=== PATIENT | male | born 1930 | race Caucasian/White ===

== ENCOUNTER 2017-04-30 10:01 | Inpatient (IN) | payer MEDICARE ==
[~2017-04-30] VITALS: Ht 162.6 cm; Wt 77.1 kg
--- NOTE | ~2017-04-30 | EC ---
PATIENT:NURIA REYNOSO DATE OF SERVICE: 04/30/17 SEX: M MEDICAL RECORD: [id number] DATE OF : [birth year] LOCATION:[facility] AGE OF PATIENT: 86 ADMISSION DATE: 04/30/17 REFERRING PHYSICIAN: INTERPRETING PHYSICIAN: JEANNETTE HURTADO MD ECHOCARDIOGRAM REPORT ECHO CHARGES 4 ECHO COMPLETE CLINICAL DIAGNOSIS: SOB/EDEMA ECHOCARDIOGRAPHIC MEASUREMENTS (adult normal given) AC root (d.<3.7cm) 3.3 cm LV Septum d (<1.2 cm> 0.0 cm Valve Excursion 0.9 cm LV Septum (systole) 1.0 cm Left Atria (s.<4.0cm> 4.7 cm LVPW d(<1.2cm) 1.0 cm RV (d.<2.3cm) 4.5 cm LVPW (sytole) 1.5 cm LV diastole(<5.6CM) 6.0 cm MV E-F(>70mm/sec) cm LV systole 4.7 cm LVOT Diameter 1.0 cm MV exc.(>10mm) 1.5 cm Est.ejection fraction (50-75%) % Pericardial Effusion N DOPPLER: LVIT cm/sec A cm/sec E cm/sec LA cm/sec RVSP 48 mmHg LVOT 73 cm/sec AOP1/2T m/s Asc. 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 Hurtado TAPE# PACS DATE OF SERVICE: 05/05/2017 PROCEDURE: Transthoracic echocardiogram. FINDINGS: 1. Left ventricle has mild dilatation. The left ventricle has normal size. Otherwise, the overall function of the heart is mildly depressed at 40% to 45% with no obvious regional wall motion abnormalities. 2. The mitral valve annulus is calcified. There is thickening of the mitral valve itself. There is severe mitral regurgitation. ECHOCARDIOGRAM REPORT [id number] NURIA REYNOSO 3. The left atrium is severely dilated. 4. Aortic valve is not well visualized. There appears to be trileaflet, degenerative valve structure. The overall peak velocity of the aortic valve 2-2.5. There appears to be moderate aortic stenosis, calculated valve area may be underestimated. Telemetry is between 0.8-1.0 cm-squared. 5. There is severe tricuspid regurgitation, RVSP of 45 to 50 mmHg. The patient is in atrial fibrillation. 6. The right atrium, the right ventricle, both moderate to severely dilated. CONCLUSION: The patient has multivalvular heart disease including at least moderate, maybe moderately to severe aortic stenosis, severe mitral regurgitation, severe tricuspid regurgitation, and evidence of pulmonary hypertension. Overall function of the heart is mildly depressed with an ejection fraction of 45% to 50%. TRANSINT:[id number] Voice Confirmation ID: [id number] DOCUMENT ID: [id number] 05/11/2017 Edited to correct date of service, dmm. JEANNETTE HURTADO MD at 1252 CC: [id number] DICTATION DATE: 05/07/17 1158 [place]: 05/07/17 1517 DIS IN 05/09/17 [id number] [place] [address]
[~2017-04-30 10:01] MED LIST: CALCIUM 500 + D1 TAB PO; CHOLESTYRAMIN4 G/PK1 PO; COUMADIN2.5 MG PO; DETROL LA4 MG PO; HYTRIN1 MG PO; ZANTAC150 MG PO
[2017-04-30 10:38] LABS: BASOPHILS 0.3 % (0-2); EOSINOPHILS 0.7 % (0-7); HEMATOCRIT 29.4 % (42.0-54.0); HEMOGLOBIN 9.6 g/dL (13.5-17.5); IMMATURE GRANULOCYTES 0.3 % (0-5); LYMPHOCYTES 21.1 % (15-50); MCH 31.6 pg (26.0-34.0); MCHC 32.7 g/dL (31.0-37.0); MCV 96.7 fL (80.0-100.0); MEAN PLATELET VOLUME 10.4 fL (7.4-10.4); MONOCYTES 6.6 % (2-11); RBC 3.04 10x6/uL (4.20-6.10); RDW 15.1 % (11.5-14.5)
[2017-04-30 10:39] LABS: PLATELET COUNT 62 10x3/uL (130-400)
[2017-04-30 10:57] LABS: ALBUMIN 2.9 g/dL (3.4-5.0); ANION GAP 15.9 mmol/L (8-16); BILIRUBIN - TOTAL 1.3 mg/dL (0.2-1.3); CALCIUM 8.7 mg/dL (8.5-10.1); CARBON DIOXIDE 21.6 mmol/L (21.0-32.0); CREATININE - SERUM 1.3 mg/dL (0.6-1.3); POTASSIUM - SERUM 3.5 mmol/L (3.5-5.1); PROTEIN - SERUM 7.1 g/dL (6.4-8.2)
[2017-04-30 10:59] LABS: PLATELET ESTIMATE DECREASED
[2017-04-30 11:01] LABS: TROPONIN-I 0.053 ng/mL (0.000-0.060)
[2017-04-30 11:40] LABS: APPEARANCE CLEAR (CLEAR); BILIRUBIN NEGATIVE (NEGATIVE); COLOR YELLOW (YELLOW); GLUCOSE NEGATIVE (NEGATIVE); KETONE NEGATIVE (NEGATIVE); NITRITE NEGATIVE (NEGATIVE); PROTEIN NEGATIVE (NEGATIVE); UROBILINOGEN NORMAL (NORMAL)
[2017-04-30 11:56] LABS: BACTERIA FEW /hpf (NONE SEEN); EPITHELIAL CELLS RARE /hpf (0-5); HYALINE CAST OCC /lpf (NONE SEEN); RED CELLS - URINE OCC /hpf (0-5); WHITE CELLS - URINE NSEEN /hpf (0-5)
[2017-04-30] MEDS ORDERED: LASIX40 MG PO (17:39)
[2017-04-30] MEDS ORDERED: ZYLOPRIM100 MG PO (17:39)
[2017-04-30] MEDS ORDERED: PROSCAR5 MG PO (17:40)
[2017-04-30 17:41] VITALS: BMI 29.2
[2017-04-30 20:00] VITALS: BP 115/63
[2017-04-30 23:53] VITALS: BP 95/48
[2017-05-01 04:45] LABS: BASOPHILS 1.1 % (0-2); EOSINOPHILS 1.5 % (0-7); HEMATOCRIT 26.3 % (42.0-54.0); HEMOGLOBIN 8.5 g/dL (13.5-17.5); LYMPHOCYTES 24.3 % (15-50); MCHC 32.3 g/dL (31.0-37.0); MEAN PLATELET VOLUME 11.8 fL (7.4-10.4); MONOCYTES 6.8 % (2-11); NEUTROPHILS 66.3 % (40-80); RBC 2.74 10x6/uL (4.20-6.10); RDW 15.2 % (11.5-14.5); WBC 2.6 10x3/uL (4.8-10.8)
[2017-05-01 04:50] LABS: PLATELET COUNT 63 10x3/uL (130-400)
[2017-05-01 05:10] LABS: ALBUMIN 2.7 g/dL (3.4-5.0); ANION GAP 12.7 mmol/L (8-16); BILIRUBIN - TOTAL 1.3 mg/dL (0.2-1.3); CALCIUM 8.3 mg/dL (8.5-10.1); CARBON DIOXIDE 22.9 mmol/L (21.0-32.0); CREATININE - SERUM 1.2 mg/dL (0.6-1.3); POTASSIUM - SERUM 3.6 mmol/L (3.5-5.1); PROTEIN - SERUM 6.4 g/dL (6.4-8.2)
[2017-05-01 08:42] VITALS: BP 99/60
[2017-05-01 11:51] VITALS: BP 122/62
[2017-05-01 14:12] LABS: % SATURATION 16 % (15-55); IRON 48 ug/dl (35-150); TOTAL IRON BIND CAPACITY 287 ug/dl (260-445); UNSAT IRON BIND CAPACITY 239 ug/dl (150-375)
[2017-05-01 14:19] LABS: PROTIME 33.7 SECONDS (11.6-15.0)
[2017-05-01 14:20] LABS: APTT 44.7 SECONDS (22.8-39.4); INR 3.49 (0.85-1.17)
[2017-05-01 15:39] VITALS: BP 111/48
[2017-05-02 01:38] VITALS: BP 114/57
[2017-05-02 04:48] LABS: BASOPHILS 0 % (0-2); EOSINOPHILS 0 % (0-7); LYMPHOCYTES 11.4 % (15-50); MCH 30.8 pg (26.0-34.0); MCHC 33.1 g/dL (31.0-37.0); NEUTROPHILS 87.6 % (40-80); PLATELET COUNT 63 10x3/uL (130-400); RDW 16.2 % (11.5-14.5)
[2017-05-02 05:05] LABS: ALBUMIN 2.7 g/dL (3.4-5.0); ANION GAP 16.8 mmol/L (8-16); BILIRUBIN - TOTAL 1.9 mg/dL (0.2-1.3); CALCIUM 8.2 mg/dL (8.5-10.1); CARBON DIOXIDE 22.5 mmol/L (21.0-32.0); CREATININE - SERUM 1.1 mg/dL (0.6-1.3); MAGNESIUM - SERUM 1.8 mg/dL (1.8-2.4); PHOSPHOROUS 3.7 mg/dL (2.5-4.9); POTASSIUM - SERUM 3.3 mmol/L (3.5-5.1); PROTEIN - SERUM 6.7 g/dL (6.4-8.2)
[2017-05-02 05:15] LABS: HEMATOCRIT 32.3 % (42.0-54.0); HEMOGLOBIN 10.7 g/dL (13.5-17.5); MCV 93.1 fL (80.0-100.0); RBC 3.47 10x6/uL (4.20-6.10)
[2017-05-02 07:46] VITALS: BP 112/60
[2017-05-02 08:45] VITALS: BP 93/53
[2017-05-02 12:37] VITALS: BP 100/54
[2017-05-02 15:26] VITALS: BMI 29.2
[2017-05-02 17:51] VITALS: BP 109/55
[2017-05-02 20:00] VITALS: BP 105/54
[2017-05-03 04:00] VITALS: BP 111/64
[2017-05-03 04:21] LABS: BASOPHILS 0 % (0-2); EOSINOPHILS 0 % (0-7); HEMATOCRIT 31.3 % (42.0-54.0); HEMOGLOBIN 10.3 g/dL (13.5-17.5); LYMPHOCYTES 8.3 % (15-50); MCH 30.7 pg (26.0-34.0); MCHC 32.9 g/dL (31.0-37.0); MCV 93.4 fL (80.0-100.0); MEAN PLATELET VOLUME 10.9 fL (7.4-10.4); MONOCYTES 2.2 % (2-11); NEUTROPHILS 89.5 % (40-80); PLATELET COUNT 67 10x3/uL (130-400); RBC 3.35 10x6/uL (4.20-6.10)
[2017-05-03 04:25] LABS: WBC 2.8 10x3/uL (4.8-10.8)
[2017-05-03 04:54] LABS: ALBUMIN 2.7 g/dL (3.4-5.0); BILIRUBIN - TOTAL 1.37 mg/dL (0.2-1.3); CALCIUM 8.5 mg/dL (8.5-10.1); CARBON DIOXIDE 22.4 mmol/L (21.0-32.0); POTASSIUM - SERUM 3.4 mmol/L (3.5-5.1); PROTEIN - SERUM 6.7 g/dL (6.4-8.2)
[2017-05-03 05:01] LABS: CREATININE - SERUM 1.4 mg/dL (0.6-1.3)
[2017-05-03 08:25] LABS: FOLATE (FOLIC ACID) - SERUM >20.0 ng/mL (>3.0)
[2017-05-03 09:29] VITALS: BP 101/56
[2017-05-03 10:19] LABS: HAPTOGLOBIN 128 mg/dL (34-200)
[2017-05-03 11:19] LABS: CEA 4.1 ng/mL (0.0-4.7)
[2017-05-03 14:18] VITALS: BP 122/69
[2017-05-03 21:30] VITALS: BP 103/73
[2017-05-04 04:00] VITALS: BP 105/67
[2017-05-04 04:35] LABS: BASOPHILS 0 % (0-2); EOSINOPHILS 0 % (0-7); HEMATOCRIT 32.7 % (42.0-54.0); HEMOGLOBIN 10.6 g/dL (13.5-17.5); LYMPHOCYTES 14.3 % (15-50); MCH 30.5 pg (26.0-34.0); MCHC 32.4 g/dL (31.0-37.0); MEAN PLATELET VOLUME 10.6 fL (7.4-10.4); MONOCYTES 9.6 % (2-11); NEUTROPHILS 76.1 % (40-80); PLATELET COUNT 67 10x3/uL (130-400); RBC 3.48 10x6/uL (4.20-6.10); RDW 15.9 % (11.5-14.5); WBC 3.2 10x3/uL (4.8-10.8)
[2017-05-04 04:53] LABS: ALBUMIN 2.7 g/dL (3.4-5.0); ANION GAP 12.7 mmol/L (8-16); BILIRUBIN - TOTAL 1.23 mg/dL (0.2-1.3); CALCIUM 8.6 mg/dL (8.5-10.1); CARBON DIOXIDE 24.8 mmol/L (21.0-32.0); CREATININE - SERUM 1.4 mg/dL (0.6-1.3); MAGNESIUM - SERUM 2.2 mg/dL (1.8-2.4); PHOSPHOROUS 2.8 mg/dL (2.5-4.9); POTASSIUM - SERUM 3.5 mmol/L (3.5-5.1); PROTEIN - SERUM 6.5 g/dL (6.4-8.2)
[2017-05-04 04:56] LABS: INR 4.55 (0.85-1.17); PROTIME 42.2 SECONDS (11.6-15.0)
[2017-05-04 06:17] LABS: BETA-2 MICROGLOBULIN 2.6 mg/L (0.6-2.4)
[2017-05-04 07:12] LABS: IMMUNOFIXATION Note: (()); IMMUNOGLOBULIN A 376 mg/dL (61-437); IMMUNOGLOBULIN G 1636 mg/dL (700-1600); IMMUNOGLOBULIN M 51 mg/dL (15-143); SPE - A/G RATIO 0.9 (0.7-1.7); SPE - ALPHA-1 GLOBULIN 0.2 g/dL (0.0-0.4); SPE - ALPHA-2 GLOBULIN 0.7 g/dL (0.4-1.0); SPE - BETA GLOBULIN 0.9 g/dL (0.7-1.3); SPE - GAMMA GLOBULIN 1.6 g/dL (0.4-1.8); SPE - M-SPIKE Not Observed g/dL (Not Observed); SPE - TOTAL PROTEIN 6.4 g/dL (6.0-8.5)
[2017-05-04 08:09] VITALS: BP 115/66
[2017-05-04 16:28] VITALS: BP 128/64
[2017-05-04 18:36] VITALS: Ht 162.6 cm; Wt 77.1 kg
[2017-05-04 22:57] VITALS: BP 102/65
[2017-05-05] VITALS (7 sets, daily range): BP systolic 87–121; BP diastolic 41–69
[2017-05-05 04:23] LABS: BASOPHILS 0 % (0-2); EOSINOPHILS 0 % (0-7); HEMATOCRIT 33.5 % (42.0-54.0); HEMOGLOBIN 10.8 g/dL (13.5-17.5); IMMATURE GRANULOCYTES 0.4 % (0-5); LYMPHOCYTES 12.2 % (15-50); MCH 30.7 pg (26.0-34.0); MCHC 32.2 g/dL (31.0-37.0); MCV 95.2 fL (80.0-100.0); MEAN PLATELET VOLUME 11.4 fL (7.4-10.4); MONOCYTES 3.1 % (2-11); NEUTROPHILS 84.3 % (40-80); PLATELET COUNT 78 10x3/uL (130-400); RBC 3.52 10x6/uL (4.20-6.10); RDW 16.2 % (11.5-14.5); WBC 2.6 10x3/uL (4.8-10.8)
[2017-05-05 04:52] LABS: ALBUMIN 2.9 g/dL (3.4-5.0); BILIRUBIN - TOTAL 1.4 mg/dL (0.2-1.3); CALCIUM 8.5 mg/dL (8.5-10.1); CARBON DIOXIDE 25.3 mmol/L (21.0-32.0); CREATININE - SERUM 1.2 mg/dL (0.6-1.3)
[2017-05-05 04:54] LABS: POTASSIUM - SERUM 4.3 mmol/L (3.5-5.1)
[2017-05-06 04:00] VITALS: BP 108/62
[2017-05-06 05:55] LABS: BASOPHILS 0 % (0-2); EOSINOPHILS 0.7 % (0-7); HEMATOCRIT 32.9 % (42.0-54.0); HEMOGLOBIN 10.4 g/dL (13.5-17.5); IMMATURE GRANULOCYTES 0.5 % (0-5); LYMPHOCYTES 11.5 % (15-50); MCH 30.1 pg (26.0-34.0); MCHC 31.6 g/dL (31.0-37.0); MCV 95.4 fL (80.0-100.0); MEAN PLATELET VOLUME 11.9 fL (7.4-10.4); MONOCYTES 6.7 % (2-11); NEUTROPHILS 80.6 % (40-80); PLATELET COUNT 86 10x3/uL (130-400); RBC 3.45 10x6/uL (4.20-6.10); RDW 15.9 % (11.5-14.5)
[2017-05-06 05:57] LABS: WBC 4.3 10x3/uL (4.8-10.8)
[2017-05-06 05:59] LABS: INR 3.86 (0.85-1.17); PROTIME 37.1 SECONDS (11.6-15.0)
[2017-05-06 06:08] LABS: ALBUMIN 2.6 g/dL (3.4-5.0); ANION GAP 9.2 mmol/L (8-16); BILIRUBIN - TOTAL 1.5 mg/dL (0.2-1.3); CALCIUM 7.7 mg/dL (8.5-10.1); CARBON DIOXIDE 29.3 mmol/L (21.0-32.0); CREATININE - SERUM 1.3 mg/dL (0.6-1.3); POTASSIUM - SERUM 3.5 mmol/L (3.5-5.1); PROTEIN - SERUM 6.2 g/dL (6.4-8.2)
[2017-05-06 09:04] VITALS: BP 138/74
[2017-05-06 12:43] VITALS: BP 102/58
[2017-05-06 16:05] VITALS: BP 110/56
[2017-05-06 20:10] VITALS: BP 101/57
[2017-05-06 23:43] VITALS: BP 108/56
[2017-05-07 04:17] VITALS: BP 123/58
[2017-05-07 06:11] LABS: BASOPHILS 0 % (0-2); EOSINOPHILS 1.4 % (0-7); HEMOGLOBIN 10.9 g/dL (13.5-17.5); IMMATURE GRANULOCYTES 0.2 % (0-5); LYMPHOCYTES 17.6 % (15-50); MCV 93.8 fL (80.0-100.0); MEAN PLATELET VOLUME 10.8 fL (7.4-10.4); MONOCYTES 4.3 % (2-11); NEUTROPHILS 76.5 % (40-80); PLATELET COUNT 77 10x3/uL (130-400); RBC 3.52 10x6/uL (4.20-6.10); RDW 15.9 % (11.5-14.5); WBC 4.2 10x3/uL (4.8-10.8)
[2017-05-07 06:31] LABS: ANION GAP 9.4 mmol/L (8-16); CALCIUM 7.7 mg/dL (8.5-10.1); CARBON DIOXIDE 30.7 mmol/L (21.0-32.0); CREATININE - SERUM 1.2 mg/dL (0.6-1.3); INR 2.79 (0.85-1.17); POTASSIUM - SERUM 3.1 mmol/L (3.5-5.1); PROTIME 28.7 SECONDS (11.6-15.0)
[2017-05-07 06:32] LABS: BILIRUBIN - DIRECT 0.52 mg/dL (0.00-0.30); BILIRUBIN - TOTAL 1.6 mg/dL (0.2-1.3)
[2017-05-07 09:41] VITALS: BP 96/49
[2017-05-07 12:14] VITALS: BP 93/52
[2017-05-07 20:31] VITALS: BP 104/48
[2017-05-08 00:16] VITALS: BP 100/56
[2017-05-08 04:52] VITALS: BP 97/54
[2017-05-08 05:09] LABS: BASOPHILS 0 % (0-2); EOSINOPHILS 1.4 % (0-7); HEMATOCRIT 33.7 % (42.0-54.0); IMMATURE GRANULOCYTES 0.2 % (0-5); LYMPHOCYTES 17.5 % (15-50); MCH 30.6 pg (26.0-34.0); MCHC 32.6 g/dL (31.0-37.0); MCV 93.6 fL (80.0-100.0); MEAN PLATELET VOLUME 10.9 fL (7.4-10.4); MONOCYTES 5.6 % (2-11); NEUTROPHILS 75.3 % (40-80); PLATELET COUNT 80 10x3/uL (130-400); RDW 15.6 % (11.5-14.5); WBC 4.3 10x3/uL (4.8-10.8)
[2017-05-08 05:27] LABS: ALBUMIN 2.7 g/dL (3.4-5.0); ANION GAP 9.6 mmol/L (8-16); BILIRUBIN - TOTAL 1.9 mg/dL (0.2-1.3); CALCIUM 7.5 mg/dL (8.5-10.1); CARBON DIOXIDE 30.4 mmol/L (21.0-32.0); CREATININE - SERUM 1.1 mg/dL (0.6-1.3); PROTEIN - SERUM 5.8 g/dL (6.4-8.2)
[2017-05-08 10:28] VITALS: BP 107/56
[2017-05-08 20:00] VITALS: BP 99/60
[2017-05-09] VITALS: BP 115/60
[2017-05-09 04:00] VITALS: BP 113/59
[2017-05-09 04:39] LABS: BASOPHILS 0.2 % (0-2); EOSINOPHILS 1.5 % (0-7); HEMATOCRIT 32.9 % (42.0-54.0); HEMOGLOBIN 10.7 g/dL (13.5-17.5); IMMATURE GRANULOCYTES 0.2 % (0-5); MCH 30.4 pg (26.0-34.0); MCHC 32.5 g/dL (31.0-37.0); MCV 93.5 fL (80.0-100.0); MEAN PLATELET VOLUME 11.6 fL (7.4-10.4); MONOCYTES 5.9 % (2-11); NEUTROPHILS 73.2 % (40-80); PLATELET COUNT 84 10x3/uL (130-400); RBC 3.52 10x6/uL (4.20-6.10); RDW 15.7 % (11.5-14.5); WBC 4.1 10x3/uL (4.8-10.8)
[2017-05-09 05:11] LABS: CALCIUM 7.8 mg/dL (8.5-10.1); CREATININE - SERUM 1.1 mg/dL (0.6-1.3)
[2017-05-09 05:37] LABS: ANION GAP 8.8 mmol/L (8-16)
[2017-05-09 05:39] LABS: POTASSIUM - SERUM 2.8 mmol/L (3.5-5.1)
[2017-05-09] MEDS ORDERED: BENTYL10 MG PO (06:19)
[2017-05-09] MEDS ORDERED: K-TAB10 MEQ PO (06:20)
[2017-05-09 09:26] VITALS: BP 91/52
[2017-05-09 12:44] VITALS: BP 96/49
== END 2017-05-09 17:22 | disposition home health service (06) | DRG 393 ==
LOC: D.ER 10:01 → D.MS 16:05
PROVIDERS: Family Medicine; Internal Medicine Gastroenterology; Legal Medicine
DX: K43.6 Other and unspecified ventral hernia with obstruction, without gangrene (principal); J18.0 Bronchopneumonia, unspecified organism; D61.818 Other pancytopenia; I08.3 Combined rheumatic disorders of mitral, aortic and tricuspid valves; I48.2 Chronic atrial fibrillation; Z79.01 Long term (current) use of anticoagulants; R91.1 Solitary pulmonary nodule; I50.9 Heart failure, unspecified; R53.1 Weakness; E80.4 Gilbert syndrome; N28.9 Disorder of kidney and ureter, unspecified; K58.9 Irritable bowel syndrome, unspecified; Z85.048 Personal history of other malignant neoplasm of rectum, rectosigmoid junction, and anus; Z87.891 Personal history of nicotine dependence

== ENCOUNTER → 2017-05-12 11:33 | Outpatient (CLI) | payer MEDICARE ==
[2017-05-04 18:36] VITALS: BMI 29.2
[~2017-05-12 11:33] MED LIST changes: +BENTYL10 MG PO; +K-TAB10 MEQ PO; +LASIX40 MG PO; +PROSCAR5 MG PO; +ZYLOPRIM100 MG PO
[2017-05-12 13:23] LABS: CALCIUM 8.4 mg/dL (8.5-10.1); CREATININE - SERUM 1.2 mg/dL (0.6-1.3)
== END | disposition home or self-care (01) ==
LOC: D.LABREF 11:33
PROVIDERS: Family Medicine
DX: E86.0 Dehydration (principal)

== ENCOUNTER → 2017-05-23 14:16 | Outpatient (CLI) | payer MEDICARE ==
[2017-05-04 18:36] VITALS: BMI 29.2
[2017-05-23 14:46] LABS: INR 2.36 (0.85-1.17); PROTIME 25.2 SECONDS (11.6-15.0)
== END | disposition home or self-care (01) ==
LOC: D.LABREF 14:16
PROVIDERS: Family Medicine
DX: K92.89 Other specified diseases of the digestive system (principal); J90 Pleural effusion, not elsewhere classified

== ENCOUNTER → 2017-06-01 15:10 | Outpatient (CLI) | payer MEDICARE ==
[2017-05-04 18:36] VITALS: BMI 29.2
[2017-06-01 19:10] LABS: INR 2.41 (0.85-1.17); PROTIME 25.6 SECONDS (11.6-15.0)
== END | disposition home or self-care (01) ==
LOC: D.LABREF 15:10
PROVIDERS: Family Medicine
DX: Z51.81 Encounter for therapeutic drug level monitoring (principal); Z79.01 Long term (current) use of anticoagulants

== ENCOUNTER → 2017-08-04 14:23 | Outpatient (CLI) | payer MEDICARE ==
[2017-05-04 18:36] VITALS: BMI 29.2
== END | disposition home or self-care (01) ==
LOC: D.CT 14:23
DX: I70.219 Atherosclerosis of native arteries of extremities with intermittent claudication, unspecified extremity (principal); R93.8 Abnormal findings on diagnostic imaging of other specified body structures

== ENCOUNTER → 2017-11-02 12:49 | Outpatient (CLI) | payer MEDICARE ==
[2017-05-04 18:36] VITALS: BMI 29.2
== END | disposition home or self-care (01) ==
LOC: D.RT 12:49
DX: R06.09 Other forms of dyspnea (principal)